=== PATIENT | female | born 1955 | race Caucasian/White ===

== ENCOUNTER 2016-11-25 20:02 | Emergency (ER) | payer BC ==
[~2016-11-25] VITALS: Ht 165.1 cm; Wt 81.7 kg
[2016-11-25 20:20] VITALS: BP 177/71
[2016-11-25 20:59] LABS: HEMATOCRIT 40.1 % (36.0-46.0); MCH 27.7 PG (29.0-34.0); MCHC 32.4 G/DL (30.0-36.0); MCV 85.3 FL (83-99); MEAN PLAT.VOLUME 10.3 uM^3 (9.5-12.4); PLATELET COUNT 276 K/uL (156-360); RBC DIS.WIDTH-CV 12.4 % (11.8-14.6); RBC DIS.WIDTH-SD 38.2 % (39-53); WHITE BLOOD COUNT 8.7 K/uL (4.1-10.2)
[2016-11-25 21:12] LABS: CHLORIDE 108 mEq/L (99-109); POTASSIUM 3.7 mEq/L (3.7-5.4); SODIUM 143 mEq/L (136-147)
[2016-11-25 21:14] LABS: GLUCOSE 121 mg/dL (70-99)
[2016-11-25 21:15] LABS: ANION GAP 10 MEQ/L (2-14)
[2016-11-25 21:16] LABS: TOTAL BILIRUBIN 0.4 mg/dL (0.0-1.0)
[2016-11-25 21:17] LABS: ALKALINE PHOSPHATASE 73 IU/L (3-129)
[2016-11-25 21:18] LABS: GFR ESTIMATE (CALCULATED) 53 mL/min/
[2016-11-25 21:19] LABS: UREA NITROGEN (BUN) 20 mg/dL (9-23)
[2016-11-25] MEDS ORDERED: LEVOTHYROXINE25 MCG PO (21:20)
[2016-11-25] MEDS ORDERED: RANITIDINE HCL150 MG PO (21:20)
[2016-11-25 21:21] LABS: LIPASE 14 U/L (1.0-51.0)
[2016-11-25] MEDS ORDERED: ATORVASTATIN CA40 MG PO (21:21)
[2016-11-25 22:15] LABS: TROP-I INTERPRETATION NEGATIVE; TROPONIN-I 0.04 ng/mL (0.0-0.30)
[2016-11-25] MEDS ORDERED: ZOFRAN ODT4 MG PO (22:30)
[2016-11-25] MEDS ORDERED: STOOL SOFTENER250 MG PO (22:30)
[2016-11-25] MEDS ORDERED: PERCOCET 5/31 TABLET PO (22:30)
== END 2016-11-25 23:12 | disposition home or self-care (01) ==
LOC: EME 20:02 → RME 20:02
PROVIDERS: Nurse Practitioner Family
DX: K80.20 Calculus of gallbladder without cholecystitis without obstruction (principal); I44.7 Left bundle-branch block, unspecified; E78.5 Hyperlipidemia, unspecified; K21.9 Gastro-esophageal reflux disease without esophagitis
CPT/HCPCS: 76705; 80053; 83690; 84484; 85027; 93005; 99281; 99285; J1885; J2405; J3010; J7030

== ENCOUNTER → 2016-12-20 | Day surgery (SDC) | payer BC ==
[~2016-12-20] VITALS: Ht 165.1 cm; Wt 64.0 kg
[~2016-12-20] MED LIST: ATORVASTATIN CA40 MG PO; LEVOTHYROXINE25 MCG PO; PERCOCET 5/31 TABLET PO; RANITIDINE HCL150 MG PO; STOOL SOFTENER250 MG PO; SYNTHROID25 MCG PO; ZANTAC150 MG PO; ZOFRAN ODT4 MG PO
[2016-12-20 09:24] VITALS: BP 124/63
== END | disposition home or self-care (01) ==
LOC: SDC 08:24
PROC: 0FJ4XZZ Inspection of Gallbladder, External Approach (ICD-10-PCS; principal; 2016-12-20)
DX: K80.20 Calculus of gallbladder without cholecystitis without obstruction (principal); Z53.09 Procedure and treatment not carried out because of other contraindication; R94.30 Abnormal result of cardiovascular function study, unspecified; I44.7 Left bundle-branch block, unspecified
CPT/HCPCS: J1100; J2405; J3010

== ENCOUNTER 2017-02-05 06:47 | Day surgery (SDC) | payer BC ==
[~2017-02-05] VITALS: Ht 165.1 cm; Wt 79.0 kg
[2017-02-05 07:05] VITALS: BP 131/66
[2017-02-05] MEDS ORDERED: PERCOCET 5/31 TABLET PO (11:23)
[2017-02-05] MEDS ORDERED: COLACE100 MG PO (11:23)
[2017-02-05 12:06] VITALS: BP 124/59
[2017-02-05 13:10] VITALS: BP 130/55
== END 2017-02-05 13:38 | disposition home or self-care (01) ==
LOC: SDC 06:47
PROC: 0FT44ZZ Resection of Gallbladder, Percutaneous Endoscopic Approach (ICD-10-PCS; principal; 2017-02-05)
DX: K80.10 Calculus of gallbladder with chronic cholecystitis without obstruction (principal); K66.0 Peritoneal adhesions (postprocedural) (postinfection); K21.9 Gastro-esophageal reflux disease without esophagitis; E78.1 Pure hyperglyceridemia; E03.9 Hypothyroidism, unspecified; E66.9 Obesity, unspecified; Z68.30 Body mass index [BMI] 30.0-30.9, adult; Z80.41 Family history of malignant neoplasm of ovary; Z82.49 Family history of ischemic heart disease and other diseases of the circulatory system
CPT/HCPCS: 88304; J0330; J1100; J1170; J1885; J2250; J2405; J2710; J3010